=== PATIENT | female | born 1955 | race Caucasian/White ===

== ENCOUNTER → 2017-11-19 06:47 | Outpatient (CLI) | payer MEDICAID, SELFPAY ==
--- NOTE | 2017-11-19 10:26 | NEURO_ITS ---
NCS and/or EMG Patient Report Ordering Doctor: Gen Jean DATE OF SERVICE: 11/19/17 This is a bilateral upper extremity nerve conduction study performed on this 2- year-old female with a history of numbness and tingling in both hands worse on the left side. Symptoms have been progressive since March 2017. Patient also has a history of diabetes, osteoarthritis, rheumatoid arthritis and ganglion cysts. Additionally there is a history of breast cancer and received chemotherapy in 2012. Bilateral upper extremity sensory and motor nerve conduction studies performed demonstrating prolongation of the median motor and sensory distal latencies bilaterally somewhat worse on the left side, there is also mild reduction of amplitudes and conduction velocities bilaterally. The ulnar motor and sensory and radial sensory responses are normal although there is somewhat non- localizable loss of ulnar motor amplitude on the right side. The median F waves are mildly prolonged bilaterally compared to the ulnar F waves. Impression: Abnormal bilateral upper extremity nerve conduction study consistent with moderate to severe carpal tunnel syndrome, electrophysiologically worse on the left side. There is also evidence of moderate ulnar neuropathy on the right which is non-localizable.
== END ==
PROVIDERS: Family Provider Family Medicine; PCP Family Medicine; Visit Provider Family Medicine
DX: R20.0 Anesthesia of skin (principal); R20.2 Paresthesia of skin; M79.641 Pain in right hand; M79.642 Pain in left hand
CPT/HCPCS: 95911

== ENCOUNTER → 2017-12-31 07:59 | Outpatient (CLI) | payer MEDICAID, SELFPAY ==
--- NOTE | 2017-12-31 10:47 | NEURO_ITS ---
NCS and/or EMG Patient Report Ordering Doctor: Gen Jean DATE OF SERVICE: 12/31/17 This is a bilateral lower extremity nerve conduction study in the left lower extremity EMG performed on this 62-year-old female with paresthesias in her feet present for over 20 years, she says this predated the diagnosis of diabetes , her hemoglobin A1c however has been well controlled at 7.2. She also has a history of rheumatoid arthritis, and in 2012 received Taxol chemotherapy for metastatic breast cancer. She is currently on an estrogen blocking medication and states that her symptoms are gradually worsening in her feet worse on the left side. Bilateral lower extremity sensory and motor nerve conduction studies are performed. The sural sensory response in the left is absent, the right sural sensory response demonstrates reduced amplitude. The medial plantar responses bilaterally demonstrate mild reduction of amplitude but are relatively symmetric. The common peroneal motor conduction velocities are low bilaterally worse on the left side, both demonstrate prolonged latencies and reduced amplitudes. The tibial motor velocities are also mildly slowed. The tibial and common peroneal F waves are intact, the tibial H reflex responses symmetrically are reduced. Left lower extremity needle electromyography was performed. Muscles evaluated included the extensor digitorum brevis abductor hallucis, medial gastrocnemius, anterior tibialis, vastus medialis and vastus lateralis muscles. Distal muscles demonstrated mild increase insertional activity and large motor units, this abnormality resolved more proximally consistent with a length dependent pattern. Other muscles demonstrated normal insertional activity with absence of pathologic spontaneous activity. Impression: Abnormal electrophysiologic study of the lower extremities consistent with peripheral neuropathy likely idiopathic given the history however, diabetes, rheumatoid arthritis and chemotherapy may be contributing factors.
== END ==
PROVIDERS: Family Provider Family Medicine; PCP Family Medicine; Visit Provider Family Medicine
DX: R20.0 Anesthesia of skin (principal); R20.2 Paresthesia of skin; M79.641 Pain in right hand; M79.642 Pain in left hand
CPT/HCPCS: 95886; 95911

== ENCOUNTER → 2020-02-29 17:44 | Outpatient (CLI) | payer MEDICARE, SELFPAY | PROVIDERS: PCP Family Medicine; Referring Provider Registered Nurse; Visit Provider Registered Nurse | DX: Z20.828 Contact with and (suspected) exposure to other viral communicable diseases (principal) | CPT/HCPCS: 87635; G2023; U0003 ==

== ENCOUNTER → 2020-03-17 16:45 | Outpatient (CLI) | payer MEDICARE, SELFPAY | PROVIDERS: PCP Family Medicine; Referring Provider Family Medicine; Visit Provider Family Medicine | DX: Z11.59 Encounter for screening for other viral diseases (principal) | CPT/HCPCS: 87635; 94799; U0003 ==